=== PATIENT | female | born 1975 | race Hispanic/Latino ===

== ENCOUNTER 2022-07-01 20:56 | Emergency (ER) | payer OTHER ==
[~2022-07-01 20:56] MED LIST: Iopamidol-370 76% 500 ML 1 ML ONE
[2022-07-01 21:47] LABS: #Basophils 0.1 thou/uL (0.0-0.2); #Eosinphils 0.2 thou/uL (0.0-0.7); #Lymphocytes 3.7 thou/uL (1.20-3.40); #Monocytes 0.7 thou/uL (0.11-0.59); #Neutrophils 7.2 thou/uL (1.40-6.50); %Basophils 0.5 % (0.0-1.0); %Eosinophils 2.1 % (0.0-10.0); %Lymphocytes 30.9 % (21.0-51.0); %Neutrophils 60.4 % (42.0-75.0); Hemoglobin 13.1 g/dL (12.0-16.0); Mean Corpuscular HGB CONC 32.3 g/dL (32.0-36.0); Mean Corpuscular Hemoglobin 28.7 pg (27.0-31.0); Mean Corpuscular Volume 88.9 fl (78.0-98.0); Mean Platelet Volume 7.4 fL (7.4-10.4); Platelet Count 305 thou/uL (130-400); RBC Distribution Width 13.4 % (11.5-14.5); Red Blood Cell (RBC) Count 4.57 mill/uL (4.20-5.40); White Blood Cell (WBC) Count 11.8 thou/uL (4.8-10.8)
[2022-07-01 22:05] LABS: ALT (SGPT) 21 U/L (8-55); AST (SGOT) 14 U/L (5-34); Albumin 3.5 g/dL (3.5-5.0); Alkaline Phosphatase 117 U/L (40-110); Anion Gap 10 mmol/L (10-20); BUN (Urea Nitrogen) 15 mg/dL (7.0-18.7); Bilirubin, Total 0.3 mg/dL (0.2-1.2); Calc. Creatinine Clearance 0 mL/min (70-130); Calcium 8.8 mg/dL (7.8-10.44); Carbon Dioxide 27 mmol/L (22-29); Chloride 102 mmol/L (98-107); Estimated GFR 83; Globulin 3.3 g/dL (2.4-3.5); Glucose 239 mg/dL (70-105); Potassium 4.2 mmol/L (3.5-5.1); Protein, Total 6.8 g/dL (6.0-8.3); Sodium 135 mmol/L (136-145)
== END 2022-07-02 01:28 | disposition home or self-care (01) ==
LOC: ERS 20:56
DX: R07.89 Other chest pain (principal); E11.9 Type 2 diabetes mellitus without complications; I10 Essential (primary) hypertension
CPT/HCPCS: 36415; 71045; 71275; 80053; 83880; 84484; 85025; 85379; 93005

== ENCOUNTER 2023-04-19 19:57 | Emergency (ER) | payer OTHER, SELFPAY ==
[2023-04-19 21:29] LABS: #Eosinphils 0.2 thou/uL (0.0-0.7); #Monocytes 0.7 thou/uL (0.11-0.59); #Neutrophils 5.1 thou/uL (1.40-6.50); %Basophils 0.4 % (0.0-1.0); %Eosinophils 2.3 % (0.0-10.0); %Monocytes 7.4 % (0.0-10.0); %Neutrophils 56.5 % (42.0-75.0); Hematocrit 40.1 % (36.0-47.0); Hemoglobin 13.1 g/dL (12.0-16.0); Mean Corpuscular HGB CONC 32.7 g/dL (32.0-36.0); Mean Corpuscular Hemoglobin 28.6 pg (27.0-31.0); Mean Corpuscular Volume 87.6 fl (78.0-98.0); Mean Platelet Volume 9.4 fL (7.4-10.4); Platelet Count 401 10x3/uL (130-400); RBC Distribution Width 12.9 % (11.5-14.5); Red Blood Cell (RBC) Count 4.58 mill/uL (4.20-5.40); White Blood Cell (WBC) Count 9.1 10x3/uL (4.8-10.8)
[2023-04-19] MEDS ORDERED: fentaNYL 50 mcg/mL 1 mL Vial ONE (21:30)
[2023-04-19 21:55] LABS: ALT (SGPT) 19 U/L (8-55); AST (SGOT) 20 U/L (5-34); Albumin 3.4 g/dL (3.5-5.0); Alkaline Phosphatase 121 U/L (40-110); Anion Gap 13 mmol/L (10-20); BUN (Urea Nitrogen) 8 mg/dL (7.0-18.7); Bilirubin, Total 0.4 mg/dL (0.2-1.2); Calc. Creatinine Clearance 0 mL/min (70-130); Calcium 8.9 mg/dL (7.8-10.44); Carbon Dioxide 24 mmol/L (22-29); Chloride 103 mmol/L (98-107); Estimated GFR 109; Globulin 3.7 g/dL (2.4-3.5); Glucose 272 mg/dL (70-105); Lipase 28 U/L (8-78); Magnesium 1.7 mg/dL (1.6-2.6); Protein, Total 7.1 g/dL (6.0-8.3); Sodium 136 mmol/L (136-145)
[2023-04-19 21:58] LABS: Troponin I Less than 0.010 ng/mL (< 0.028)
[2023-04-19 22:11] LABS: BHCG - Serum Negative (NEGATIVE); Pregs Control Background? CLEAR/WHITE (CLR/WHITE); Pregs Control Bar Appear? YES (CONTROL BAR)
[2023-04-19] MEDS ORDERED: Cephalexin 250 MG CAP ONE (23:14)
== END 2023-04-19 23:11 | disposition home or self-care (01) ==
LOC: ERS 19:57
DX: L03.115 Cellulitis of right lower limb (principal); E11.9 Type 2 diabetes mellitus without complications; I10 Essential (primary) hypertension
CPT/HCPCS: 71045; 80053; 83690; 83735; 84484; 84703; 85025; 93005; 96374; J3010

== ENCOUNTER 2023-04-22 20:45 | Inpatient (IN) | payer SELFPAY ==
[2023-04-22] MEDS ORDERED: Ketorolac Tromethamine 30 MG/ML VIAL ONE (22:21)
[2023-04-22 22:25] LABS: #Basophils 0.1 thou/uL (0.0-0.2); #Eosinphils 0.2 thou/uL (0.0-0.7); #Monocytes 0.7 thou/uL (0.11-0.59); #Neutrophils 6.6 thou/uL (1.40-6.50); %Basophils 0.5 % (0.0-1.0); %Eosinophils 1.8 % (0.0-10.0); %Lymphocytes 25.7 % (21.0-51.0); %Monocytes 7.1 % (0.0-10.0); %Neutrophils 64.4 % (42.0-75.0); Hematocrit 40.9 % (36.0-47.0); Hemoglobin 13.4 g/dL (12.0-16.0); Mean Corpuscular HGB CONC 32.8 g/dL (32.0-36.0); Mean Corpuscular Hemoglobin 28.6 pg (27.0-31.0); Mean Corpuscular Volume 87.4 fl (78.0-98.0); Mean Platelet Volume 9.5 fL (7.4-10.4); Platelet Count 409 10x3/uL (130-400); RBC Distribution Width 12.7 % (11.5-14.5); Red Blood Cell (RBC) Count 4.68 mill/uL (4.20-5.40); White Blood Cell (WBC) Count 10.3 10x3/uL (4.8-10.8)
[2023-04-22 22:50] LABS: ALT (SGPT) 20 U/L (8-55); AST (SGOT) 13 U/L (5-34); Albumin 3.8 g/dL (3.5-5.0); Alkaline Phosphatase 135 U/L (40-110); Anion Gap 14 mmol/L (10-20); BUN (Urea Nitrogen) 11 mg/dL (7.0-18.7); Bilirubin, Total 0.4 mg/dL (0.2-1.2); Calc. Creatinine Clearance 0 mL/min (70-130); Calcium 9.4 mg/dL (7.8-10.44); Carbon Dioxide 26 mmol/L (22-29); Chloride 102 mmol/L (98-107); Estimated GFR 100; Globulin 3.9 g/dL (2.4-3.5); Glucose 258 mg/dL (70-105); Potassium 3.6 mmol/L (3.5-5.1); Protein, Total 7.7 g/dL (6.0-8.3); Sodium 138 mmol/L (136-145)
[2023-04-23] MEDS ORDERED: cefTRIAXone (ROCEPHIN) 2 GM VIAL ONE (00:03)
[2023-04-23 00:12] LABS: SARS-CoV-2 NAA Rapid Test Not Detected (NotDetected)
[2023-04-23] MEDS ORDERED: Vancomycin 1 GM/200 ML (FROZEN) BAG ONE (02:03)
[2023-04-23] MEDS ORDERED: Calcium Carbonate 500 MG ChewTAB PO PRN (02:09)
[2023-04-23] MEDS ORDERED: Senokot S 8.6-50 MG TAB PO PRN (02:09)
[2023-04-23] MEDS ORDERED: Ondansetron ODT 4 MG TAB PO PRN (02:09)
[2023-04-23] MEDS ORDERED: Acetaminophen 325 MG TAB PO PRN (02:09)
[2023-04-23] MEDS ORDERED: Dextrose 50% Abboject 50 ML SYRINGE SLOW IVP PRN (02:18)
[2023-04-23] MEDS ORDERED: HumaLOG 300 UNITS/3 ML VIAL SC PRN (02:18)
[2023-04-23] MEDS ORDERED: Dextrose 5% in Water 1,000 ML IV PRN (02:18)
[2023-04-23] MEDS ORDERED: Glucagon 1 MG/ML KIT IM PRN (02:18)
[2023-04-23] MEDS ORDERED: Morphine 4 MG/ML VIAL ONE (02:33)
[2023-04-23 03:06] LABS: Bilirubin Negative (Negative); Blood, Urine Negative (Negative); CAUTI Indications for Culture Fever or rigors; Clarity Turbid (Clear); Glucose, Urine (Dipstick) 300 mg/dL (Negative); Ketone, Urine Trace mg/dL (Negative); Leukocyte 75 Leu/uL (Negative); Mucous/LPF Rare LPF (<2+); Nitrite Negative (Negative); Protein, Urine (Dipstick) 100 mg/dL (Neg-Trace); Specific Gravity, Urine 1.034 (1.002-1.036); Urobilinogen Normal mg/dL (Less than 2); Yeast-Budding Rare HPF (None Seen); pH, Urine 5.5 (5.0-9.0)
[2023-04-23 03:23] LABS: Bacteria/HPF 1+ HPF (None Seen)
[2023-04-23 03:24] LABS: Urine Culture Reflex No No
[2023-04-23 05:47] VITALS: BMI 39.9
[2023-04-23 06:32] LABS: #Eosinphils 0.2 thou/uL (0.0-0.7); #Monocytes 0.7 thou/uL (0.11-0.59); #Neutrophils 4.4 thou/uL (1.40-6.50); %Basophils 0.5 % (0.0-1.0); %Eosinophils 2.2 % (0.0-10.0); %Monocytes 7.7 % (0.0-10.0); %Neutrophils 52.1 % (42.0-75.0); Hematocrit 34.3 % (36.0-47.0); Mean Corpuscular HGB CONC 32.1 g/dL (32.0-36.0); Mean Corpuscular Hemoglobin 28.7 pg (27.0-31.0); Mean Corpuscular Volume 89.6 fl (78.0-98.0); Mean Platelet Volume 9.3 fL (7.4-10.4); RBC Distribution Width 12.8 % (11.5-14.5); Red Blood Cell (RBC) Count 3.83 mill/uL (4.20-5.40); White Blood Cell (WBC) Count 8.5 10x3/uL (4.8-10.8)
[2023-04-23 06:41] LABS: Hemoglobin A1c 10.4 % (4.0-6.0)
[2023-04-23 06:46] LABS: Platelet Count 298 10x3/uL (130-400)
[2023-04-23 06:54] LABS: Anion Gap 12 mmol/L (10-20); BUN (Urea Nitrogen) 9 mg/dL (7.0-18.7); Calc. Creatinine Clearance 166 mL/min (70-130); Calcium 8.1 mg/dL (7.8-10.44); Carbon Dioxide 24 mmol/L (22-29); Chloride 105 mmol/L (98-107); Estimated GFR 110; Glucose 245 mg/dL (70-105); Potassium 3.5 mmol/L (3.5-5.1); Sodium 137 mmol/L (136-145)
[2023-04-23] MEDS ORDERED: Pregabalin 50 MG CAP PO SCH ×2 (09:00→21:00)
[2023-04-23] MEDS: Vancomycin 1.5 GRAM/300 ML BAG 1.5 GM in Premix Bag 1 BAG IVPB SCH ×2 (09:40→21:11)
[2023-04-23] MEDS: Lisinopril/Hydrochlorothiazide 20/25 mg Tablet PO SCH (09:41)
[2023-04-23] MEDS: Famotidine 20 MG TAB PO SCH ×2 (09:42→21:06)
[2023-04-23] MEDS: metFORMIN 500 MG TAB PO SCH ×2 (09:42→17:39)
[2023-04-23] MEDS: cefTRIAXone\\ROCEPHIN 2 GM in Sodium Chloride 0.9% 100 ML IVPB SCH (13:08)
[2023-04-23] MEDS: HYDROcodone/Acetaminophen 5/325 mg Tablet PO PRN ×2 (15:00→21:07)
[2023-04-23] MEDS: HumaLOG 300 UNITS/3 ML VIAL SC PRN (17:39)
[2023-04-24] MEDS: HYDROcodone/Acetaminophen 5/325 mg Tablet PO PRN ×2 (08:10→21:27)
[2023-04-24] MEDS: metFORMIN 500 MG TAB PO SCH ×2 (08:11→16:30)
[2023-04-24] MEDS: Lisinopril/Hydrochlorothiazide 20/25 mg Tablet PO SCH (08:11)
[2023-04-24] MEDS: Famotidine 20 MG TAB PO SCH ×2 (08:12→21:27)
[2023-04-24] MEDS: Hydrocortisone 1% Cream 30 GM TUBE TOP SCH (09:29)
[2023-04-24 09:54] LABS: Vancomycin, Trough 7.5 ug/mL
[2023-04-24] MEDS: Vancomycin 1.5 GRAM/300 ML BAG 1.5 GM in Premix Bag 1 BAG IVPB SCH ×3 (11:23→21:28)
[2023-04-24] MEDS: HumaLOG 300 UNITS/3 ML VIAL SC PRN ×2 (12:03→16:30)
[2023-04-24] MEDS: cefTRIAXone\\ROCEPHIN 2 GM in Sodium Chloride 0.9% 100 ML IVPB SCH (12:04)
[2023-04-24] MEDS ORDERED: Alogliptin 25 MG TAB PO SCH (15:00)
[2023-04-25] MEDS: HYDROcodone/Acetaminophen 5/325 mg Tablet PO PRN ×2 (04:14→08:24)
[2023-04-25] MEDS: Vancomycin 1.5 GRAM/300 ML BAG 1.5 GM in Premix Bag 1 BAG IVPB SCH (04:15)
[2023-04-25 06:53] LABS: #Eosinphils 0.2 thou/uL (0.0-0.7); #Monocytes 0.6 thou/uL (0.11-0.59); #Neutrophils 5.9 thou/uL (1.40-6.50); %Basophils 0.4 % (0.0-1.0); %Eosinophils 2.1 % (0.0-10.0); %Lymphocytes 24.9 % (21.0-51.0); %Monocytes 6.9 % (0.0-10.0); %Neutrophils 65.3 % (42.0-75.0); Hematocrit 35.5 % (36.0-47.0); Hemoglobin 11.6 g/dL (12.0-16.0); Mean Corpuscular HGB CONC 32.7 g/dL (32.0-36.0); Mean Corpuscular Hemoglobin 29.1 pg (27.0-31.0); Mean Corpuscular Volume 89.2 fl (78.0-98.0); Mean Platelet Volume 9.4 fL (7.4-10.4); Platelet Count 331 10x3/uL (130-400); RBC Distribution Width 12.7 % (11.5-14.5); Red Blood Cell (RBC) Count 3.98 mill/uL (4.20-5.40)
[2023-04-25 07:14] VITALS: TEMP 98
[2023-04-25 07:19] LABS: Anion Gap 12 mmol/L (10-20); BUN (Urea Nitrogen) 10 mg/dL (7.0-18.7); Calc. Creatinine Clearance 183 mL/min (70-130); Calcium 8.7 mg/dL (7.8-10.44); Carbon Dioxide 24 mmol/L (22-29); Chloride 102 mmol/L (98-107); Cholesterol 196 mg/dl (< 200 Desired); Estimated GFR 113; Glucose 194 mg/dL (70-105); HDL Cholesterol 28 mg/dL (>60 Neg Risk); LDL Cholesterol, Calculated 136 mg/dL; Potassium 3.4 mmol/L (3.5-5.1); Sodium 135 mmol/L (136-145); Triglycerides 158 mg/dL (Less than 150)
[2023-04-25] MEDS: Famotidine 20 MG TAB PO SCH (08:19)
[2023-04-25] MEDS: metFORMIN 500 MG TAB PO SCH (08:19)
[2023-04-25] MEDS: Lisinopril/Hydrochlorothiazide 20/25 mg Tablet PO SCH (08:20)
[2023-04-25] MEDS: Hydrocortisone 1% Cream 30 GM TUBE TOP SCH (08:20)
[2023-04-25] MEDS ORDERED: Alogliptin 25 MG TAB PO SCH (09:00)
[2023-04-25] MEDS: cefTRIAXone\\ROCEPHIN 2 GM in Sodium Chloride 0.9% 100 ML IVPB SCH (11:08)
[2023-04-25 11:24] VITALS: BP 126/83
[2023-04-25 11:56] LABS: Vancomycin, Trough 21.8 ug/mL
== END 2023-04-25 12:49 | disposition home or self-care (01) | DRG 603 ==
LOC: ERS 20:45 → 2SW 04-23 02:11 → OBSVTOIN 04-23 09:31 → T4-A 04-23 17:02
PROVIDERS: ADMIT Student in an Organized Health Care Education/Training Program; ATTEND Internal Medicine Critical Care Medicine
DX: L03.115 Cellulitis of right lower limb (principal); I50.32 Chronic diastolic (congestive) heart failure; L40.9 Psoriasis, unspecified; E66.9 Obesity, unspecified; Z20.822 Contact with and (suspected) exposure to COVID-19; I11.0 Hypertensive heart disease with heart failure; E11.69 Type 2 diabetes mellitus with other specified complication; E87.6 Hypokalemia; Z98.51 Tubal ligation status; Z90.49 Acquired absence of other specified parts of digestive tract; Z79.899 Other long term (current) drug therapy; Z98.890 Other specified postprocedural states; Z68.39 Body mass index [BMI] 39.0-39.9, adult
CPT/HCPCS: 36415; 36416; 71045; 80048; 80053; 80061; 80202; 81001; 83036; 83605; 84443; 85025; 85652; 86140; 87040; 96361; 96365; 96366; 96367; 96375; J0696; J1815; J1885; J2270; J3370; J3370-JW; J3490; U0002

== ENCOUNTER 2023-07-06 19:13 | Emergency (ER) | payer OTHER ==
[2023-07-06 20:17] LABS: #Basophils 0.1 thou/uL (0.0-0.2); #Eosinphils 0.3 thou/uL (0.0-0.7); #Monocytes 0.7 thou/uL (0.11-0.59); #Neutrophils 5.1 thou/uL (1.40-6.50); %Basophils 0.8 % (0.0-1.0); %Eosinophils 3.3 % (0.0-10.0); %Lymphocytes 33.1 % (21.0-51.0); %Monocytes 7.1 % (0.0-10.0); %Neutrophils 55.3 % (42.0-75.0); Hematocrit 41.6 % (36.0-47.0); Hemoglobin 12.8 g/dL (12.0-16.0); Mean Corpuscular HGB CONC 30.8 g/dL (32.0-36.0); Mean Corpuscular Hemoglobin 27.2 pg (27.0-31.0); Mean Corpuscular Volume 88.5 fl (78.0-98.0); Mean Platelet Volume 9.2 fL (7.4-10.4); Platelet Count 407 10x3/uL (130-400); RBC Distribution Width 13.9 % (11.5-14.5); White Blood Cell (WBC) Count 9.2 10x3/uL (4.8-10.8)
[2023-07-06 20:26] LABS: BHCG - Serum Negative (NEGATIVE); Pregs Control Background? CLEAR/WHITE (CLR/WHITE); Pregs Control Bar Appear? YES (CONTROL BAR)
[2023-07-06 20:40] LABS: ALT (SGPT) 10 U/L (8-55); AST (SGOT) 9 U/L (5-34); Alkaline Phosphatase 114 U/L (40-110); Anion Gap 13 mmol/L (10-20); BUN (Urea Nitrogen) 20 mg/dL (7.0-18.7); Bilirubin, Total 0.2 mg/dL (0.2-1.2); Calc. Creatinine Clearance 0 mL/min (70-130); Calcium 9.4 mg/dL (7.8-10.44); Carbon Dioxide 28 mmol/L (22-29); Chloride 102 mmol/L (98-107); Estimated GFR 96; Globulin 3.7 g/dL (2.4-3.5); Glucose 146 mg/dL (70-105); Potassium 3.7 mmol/L (3.5-5.1); Protein, Total 7.7 g/dL (6.0-8.3); Prothrombin Time 13.5 sec (12.0-14.7); Sodium 139 mmol/L (136-145)
[2023-07-06] MEDS ORDERED: Cyclobenzaprine 10 MG TAB ONE (22:16)
[2023-07-06] MEDS ORDERED: Ketorolac Tromethamine 30 MG/ML VIAL ONE (22:17)
== END 2023-07-06 22:30 | disposition home or self-care (01) ==
LOC: ERS 19:13
DX: M79.604 Pain in right leg (principal); E11.9 Type 2 diabetes mellitus without complications; I10 Essential (primary) hypertension
CPT/HCPCS: 36415; 71275; 84703; 85610; 85730; 96374; J1885

== ENCOUNTER 2023-08-05 20:27 | Inpatient (IN) | payer OTHER ==
[~2023-08-05 20:27] MED LIST changes: -Iopamidol-370 76% 500 ML 1 ML ONE; +Iopamidol-370 76% 500 ML MDV (1 ML CHARGE) ONE
[2023-08-05] MEDS ORDERED: Ondansetron PF 4 MG/2 ML Vial ONE (20:38)
[2023-08-05] MEDS ORDERED: Morphine 4 MG/ML VIAL ONE ×2 (20:38→22:17)
[2023-08-05 21:02] LABS: #Basophils 0.1 thou/uL (0.0-0.2); #Eosinphils 0.1 thou/uL (0.0-0.7); #Monocytes 0.9 thou/uL (0.11-0.59); %Basophils 0.4 % (0.0-1.0); %Eosinophils 0.6 % (0.0-10.0); %Lymphocytes 14.2 % (21.0-51.0); %Monocytes 6.5 % (0.0-10.0); %Neutrophils 77.9 % (42.0-75.0); Hematocrit 41.3 % (36.0-47.0); Hemoglobin 12.9 g/dL (12.0-16.0); Mean Corpuscular HGB CONC 31.2 g/dL (32.0-36.0); Mean Corpuscular Hemoglobin 25.9 pg (27.0-31.0); Mean Corpuscular Volume 82.8 fl (78.0-98.0); Mean Platelet Volume 9.3 fL (7.4-10.4); Platelet Count 499 10x3/uL (130-400); Red Blood Cell (RBC) Count 4.99 mill/uL (4.20-5.40); White Blood Cell (WBC) Count 14.1 10x3/uL (4.8-10.8)
[2023-08-05 21:25] LABS: ALT (SGPT) 9 U/L (8-55); AST (SGOT) 9 U/L (5-34); Albumin 3.7 g/dL (3.5-5.0); Alkaline Phosphatase 121 U/L (40-110); Anion Gap 14 mmol/L (10-20); BUN (Urea Nitrogen) 11 mg/dL (7.0-18.7); Bilirubin, Total 0.9 mg/dL (0.2-1.2); Calc. Creatinine Clearance 0 mL/min (70-130); Calcium 9.1 mg/dL (7.8-10.44); Carbon Dioxide 27 mmol/L (22-29); Chloride 102 mmol/L (98-107); Estimated GFR 88; Globulin 3.9 g/dL (2.4-3.5); Glucose 175 mg/dL (70-105); Potassium 4.2 mmol/L (3.5-5.1); Protein, Total 7.6 g/dL (6.0-8.3); Sodium 139 mmol/L (136-145)
[2023-08-05 21:28] LABS: Troponin I Less than 0.010 ng/mL (< 0.028)
[2023-08-05] MEDS ORDERED: Sodium Chloride 0.9% 100 ML ONE (21:34)
[2023-08-05] MEDS ORDERED: Piperacillin/Tazobactam 4.5 GM VIAL ONE (21:34)
[2023-08-05] MEDS ORDERED: Vancomycin (BATCH) 1.75 GM in Premix 1 BAG IVPB SCH (21:45)
[2023-08-05 21:51] LABS: Bacteria/HPF None Seen HPF (None Seen); Bilirubin Negative (Negative); Blood, Urine Negative (Negative); CAUTI Indications for Culture Dysuria,urgency,freq; Clarity Clear (Clear); Glucose, Urine (Dipstick) Normal (Negative); Ketone, Urine Negative (Negative); Leukocyte Negative Leu/uL (Negative); Nitrite Negative (Negative); Protein, Urine (Dipstick) 200 mg/dL (Neg-Trace); RBC/HPF 0-3 HPF (0-3); Specific Gravity, Urine 1.019 (1.002-1.036); Squamous Epithelial 0-3 HPF (0-3); Urobilinogen Normal mg/dL (Less than 2); WBC/HPF 0-3 HPF (0-3)
[2023-08-05 22:02] LABS: Urine Culture Reflex No No
[2023-08-05 22:05] LABS: SARS-CoV-2 NAA Rapid Test Not Detected (NotDetected)
[2023-08-05] MEDS ORDERED: Metoclopramide HCl 10 MG/2 ML VIAL ONE (22:17)
[2023-08-05 23:44] LABS: BHCG - Serum Negative (NEGATIVE); Pregs Control Background? CLEAR/WHITE (CLR/WHITE); Pregs Control Bar Appear? YES (CONTROL BAR)
[2023-08-05 23:59] LABS: Acetaminophen Less than 10 mcg/mL (10.0-30.0); Alcohol Less than 10.0 mg/dL (Less than 10); Magnesium 1.9 mg/dL (1.6-2.6); Salicylate Less than 8.0 mg/dL (15.0-30.0)
[2023-08-06 00:07] LABS: Amphetamine Not Detected (NotDetected); Barbiturates Screen Not Detected (NotDetected); Benzodiazepine Screen Detected (NotDetected); Cocaine Metabolite Screen Not Detected (NotDetected); Methadone Not Detected (NotDetected); Methamphetamine Not Detected (NotDetected); Opiate Screen Detected (NotDetected); Oxycodone Screen Not Detected (NotDetected); Phencyclidine (PCP) Not Detected (NotDetected); THC/Cannabinoid Screen Not Detected (NotDetected); Tricyclic Screen Not Detected (NotDetected)
[2023-08-06] MEDS ORDERED: Orphenadrine Citrate 60 MG/2 ML VIAL ONE (00:21)
[2023-08-06] MEDS ORDERED: LORazepam 2 MG/ML SYR.(CARPUJECT) ONE (00:37)
[2023-08-06 01:56] LABS: Actual Bicarbonate (HCO3v) 23.7 mEq/L (22-28); Base Excess -1.9 mEq/L (-2.0 to +3.0); Calcium, Ionized (venous) 1.04 mmol/L (1.16-1.32); Chloride (VBG) 103 mmol/L (98-106); Hematocrit-VBG 39 % (36.0-47.0); Hemoglobin (Hb) 13.1 g/dL (11.7-16.0); Sodium 140 mmol/L (133-146); pH (venous) 7.353 (7.32-7.43)
[2023-08-06] MEDS ORDERED: cefTRIAXone (ROCEPHIN) 2 GM VIAL ONE (02:53)
[2023-08-06] MEDS ORDERED: Sodium Chloride 0.9% 100 ML ONE (02:54)
[2023-08-06] MEDS ORDERED: CALCIUM GLUC 1 GM/NS 50 ML BAG ONE (02:54)
[2023-08-06 03:28] VITALS: BMI 28.8
[2023-08-06] MEDS ORDERED: Methocarbamol 500 MG TAB PO PRN (08:40)
[2023-08-06] MEDS ORDERED: Ondansetron PF 4 MG/2 ML Vial IVP PRN (08:40)
[2023-08-06] MEDS ORDERED: Acetaminophen 325 MG TAB PO PRN (08:40)
[2023-08-06] MEDS ORDERED: VANCOMYCIN IVPB PRN (08:44)
[2023-08-06] MEDS ORDERED: Docusate 100 MG CAP PO PRN (09:06)
[2023-08-06] MEDS ORDERED: Glucagon 1 MG/ML KIT IM PRN (09:06)
[2023-08-06] MEDS ORDERED: Polyethylene Glycol 3350 17 GM Packet PO PRN (09:06)
[2023-08-06] MEDS ORDERED: Dextrose 50% Abboject 50 ML SYRINGE SLOW IVP PRN (09:06)
[2023-08-06] MEDS ORDERED: HumaLOG 300 UNITS/3 ML VIAL SC PRN ×2 (09:06→22:09)
[2023-08-06] MEDS ORDERED: Dextrose 5% in Water 1,000 ML IV PRN (09:06)
[2023-08-06] MEDS ORDERED: Dexamethasone 10 MG/ML VIAL ONE (09:34)
[2023-08-06] MEDS ORDERED: Famotidine 20 MG TAB ONE (09:35)
[2023-08-06] MEDS: Famotidine 20 MG TAB PO SCH ×2 (09:38→22:35)
[2023-08-06] MEDS: Dexamethasone 10 MG/ML VIAL SLOW IVP SCH ×3 (09:39→22:35)
[2023-08-06] MEDS ORDERED: Magnevist 469MG/ML 20 ML VIAL ONE (10:08)
[2023-08-06] MEDS ORDERED: Losartan 25 MG TAB PO SCH (10:30)
[2023-08-06] MEDS ORDERED: HYDROcodone/Acetaminophen 5/325 mg Tablet ONE (10:51)
[2023-08-06] MEDS: HYDROcodone/Acetaminophen 5/325 mg Tablet PO PRN ×2 (10:53→22:49)
[2023-08-06] MEDS ORDERED: Vancomycin 1 GM/200 ML (FROZEN) BAG ONE (13:19)
[2023-08-06] MEDS: Vancomycin 1 GM in Premix 1 BAG IVPB SCH ×2 (13:27→17:48)
[2023-08-06] MEDS ORDERED: Losartan 25 MG TAB ONE (13:30)
[2023-08-06 13:47] LABS: CSF Source CSF
[2023-08-06 13:48] LABS: CSF Source CSF; Clarity Clear (Clear); Tube # 2; Tube # 4
[2023-08-06 13:55] LABS: CSF, Glucose 122 mg/dl (40-70); CSF, Protein 22 mg/dL (15-40)
[2023-08-06 14:10] LABS: Color Of CSF Supernatant COLORLESS (Colorless); Tube # 1; Unspun CSF Color COLORLESS (Colorless)
[2023-08-06] MEDS ORDERED: FLU VACC QS2023-24(6MOS UP)/PF 60 MCG/0.5 ML SYRINGE IM ONE (16:00)
[2023-08-06] MEDS: cefTRIAXone\\ROCEPHIN 2 GM in Sodium Chloride 0.9% 100 ML IVPB SCH (16:37)
[2023-08-06] MEDS: Atorvastatin Calcium 10 MG TAB PO SCH (22:35)
[2023-08-07] MEDS: Vancomycin 1 GM in Premix 1 BAG IVPB SCH ×2 (03:03→09:31)
[2023-08-07] MEDS ORDERED: Metoclopramide HCl 10 MG/2 ML VIAL IVP SCH (04:30)
[2023-08-07] MEDS: Dexamethasone 10 MG/ML VIAL SLOW IVP SCH ×2 (04:40→09:30)
[2023-08-07] MEDS: cefTRIAXone\\ROCEPHIN 2 GM in Sodium Chloride 0.9% 100 ML IVPB SCH (04:47)
[2023-08-07 04:56] LABS: #Monocytes 0.3 thou/uL (0.11-0.59); #Neutrophils 11.3 thou/uL (1.40-6.50); %Basophils 0.2 % (0.0-1.0); %Lymphocytes 8.2 % (21.0-51.0); %Monocytes 2.3 % (0.0-10.0); %Neutrophils 88.9 % (42.0-75.0); Hematocrit 37.7 % (36.0-47.0); Hemoglobin 11.8 g/dL (12.0-16.0); Mean Corpuscular HGB CONC 31.3 g/dL (32.0-36.0); Mean Corpuscular Hemoglobin 25.8 pg (27.0-31.0); Mean Corpuscular Volume 82.5 fl (78.0-98.0); Mean Platelet Volume 9.9 fL (7.4-10.4); Platelet Count 502 10x3/uL (130-400); RBC Distribution Width 14.5 % (11.5-14.5); Red Blood Cell (RBC) Count 4.57 mill/uL (4.20-5.40); White Blood Cell (WBC) Count 12.7 10x3/uL (4.8-10.8)
[2023-08-07 05:24] LABS: Anion Gap 13 mmol/L (10-20); BUN (Urea Nitrogen) 15 mg/dL (7.0-18.7); Calc. Creatinine Clearance 133 mL/min (70-130); Calcium 9.7 mg/dL (7.8-10.44); Carbon Dioxide 26 mmol/L (22-29); Chloride 101 mmol/L (98-107); Estimated GFR 98; Glucose 332 mg/dL (70-105); Potassium 4.2 mmol/L (3.5-5.1); Sodium 136 mmol/L (136-145)
[2023-08-07] MEDS ORDERED: Losartan 25 MG TAB PO SCH (09:00)
[2023-08-07 09:24] LABS: Vancomycin, Trough 12.2 ug/mL
[2023-08-07] MEDS: Famotidine 20 MG TAB PO SCH ×2 (09:30→21:31)
[2023-08-07] MEDS: Losartan 25 MG TAB PO SCH (09:30)
[2023-08-07] MEDS: Oseltamivir 75 MG CAP PO SCH ×2 (09:31→21:30)
[2023-08-07] MEDS ORDERED: Vancomycin HCl 250 MG in Sodium Chloride 0.9% 100 ML IVPB SCH (09:45)
[2023-08-07] MEDS: HumaLOG 300 UNITS/3 ML VIAL SC PRN ×2 (16:49→21:49)
[2023-08-07] MEDS ORDERED: Vancomycin (BATCH) 1.25 GM in Premix 1 BAG IVPB SCH (18:00)
[2023-08-07] MEDS ORDERED: Melatonin 3 MG TAB PO PRN (20:07)
[2023-08-07] MEDS: Atorvastatin Calcium 10 MG TAB PO SCH (21:30)
[2023-08-07] MEDS: HYDROcodone/Acetaminophen 5/325 mg Tablet PO PRN (21:31)
[2023-08-08] MEDS: HumaLOG 300 UNITS/3 ML VIAL SC PRN (05:48)
[2023-08-08] MEDS: Famotidine 20 MG TAB PO SCH (08:41)
[2023-08-08] MEDS: Losartan 25 MG TAB PO SCH (08:41)
[2023-08-08] MEDS: Oseltamivir 75 MG CAP PO SCH (08:41)
[2023-08-08] MEDS: HYDROcodone/Acetaminophen 5/325 mg Tablet PO PRN (08:45)
[2023-08-08] MEDS ORDERED: Clobetasol 0.05% Cream 15 gm Tube TOP SCH (09:00)
[2023-08-08] MEDS ORDERED: Ibuprofen 800 MG TAB PO PRN (10:50)
[2023-08-08] MEDS ORDERED: HumaLOG 300 UNITS/3 ML VIAL SC PRN (10:51)
[2023-08-08 11:42] VITALS: BP 138/70; TEMP 98.4
== END 2023-08-08 15:45 | disposition home or self-care (01) | DRG 872 ==
LOC: ERS 20:27 → ERHOLD 08-06 02:59 → OBSVTOIN 08-06 08:46 → 2NO 08-06 14:22
PROVIDERS: ADMIT Student in an Organized Health Care Education/Training Program; ATTEND Student in an Organized Health Care Education/Training Program
PROC: 3E03329 Introduction of Other Anti-infective into Peripheral Vein, Percutaneous Approach (ICD-10-PCS; 2023-08-05)
PROC: 009U3ZX Drainage of Spinal Canal, Percutaneous Approach, Diagnostic (ICD-10-PCS; principal; 2023-08-06)
PROC: 4A043R1 Measurement of Venous Saturation, Peripheral, Percutaneous Approach (ICD-10-PCS; 2023-08-06)
DX: A41.89 Other specified sepsis (principal); I50.32 Chronic diastolic (congestive) heart failure; J10.1 Influenza due to other identified influenza virus with other respiratory manifestations; I11.0 Hypertensive heart disease with heart failure; E11.9 Type 2 diabetes mellitus without complications; Z98.51 Tubal ligation status; Z98.890 Other specified postprocedural states; Z11.52 Encounter for screening for COVID-19
CPT/HCPCS: 36415; 36416; 62270; 70450; 70553; 71275; 80048; 80053; 80202; 80306; 80307; 81001; 82805; 82945; 83605; 83735; 83880; 84157; 84439; 84443; 84480; 84484; 84703; 85025; 87040; 87070; 87077; 87081; 87086; 87205; 87633; 89051; 93005; 96361; 96365; 96366; 96367; 96372; 96375; 96376; A9579; G0378; J0613; J0696; J1100; J1650; J1815; J2060; J2270; J2360; J2405; J2543; J2765; J3370; J3370-JW; J3490; Q9967

== ENCOUNTER 2024-02-26 11:29 | Emergency (ER) | payer OTHER ==
[2024-02-26 12:11] LABS: Pregnancy Test - Urine (BHCG) Negative (Negative); Pregu Control Bar Appear? YES (CONTROL BAR); Specific Gravity 1.033 (1.002-1.036)
[2024-02-26 12:13] LABS: Bacteria/HPF None Seen HPF (None Seen); Bilirubin Negative (Negative); Blood, Urine Trace (Negative); CAUTI Indications for Culture Dysuria,urgency,freq; Clarity Clear (Clear); Glucose, Urine (Dipstick) Normal (Negative); Ketone, Urine Negative (Negative); Leukocyte Negative Leu/uL (Negative); Nitrite Negative (Negative); Protein, Urine (Dipstick) 300 mg/dL (Neg-Trace); RBC/HPF 0-3 HPF (0-3); Specific Gravity, Urine 1.033 (1.002-1.036); Squamous Epithelial None Seen HPF (0-3); Urobilinogen Normal mg/dL (Less than 2); WBC/HPF 0-3 HPF (0-3); pH, Urine 5.5 (5.0-9.0)
[2024-02-26 12:15] LABS: Urine Culture Reflex No No
[2024-02-26 12:20] LABS: Pregu Control Background? CLEAR/WHITE (CLR/WHITE)
[2024-02-26 12:21] LABS: #Basophils 0.05 10x3/uL (0.0-0.2); %Basophils 0.5 % (0.0-1.0); %Eosinophils 2.1 % (0.0-10.0); %Lymphocytes 23.4 % (21.0-51.0); %Monocytes 5.1 % (0.0-10.0); %Neutrophils 68.4 % (42.0-75.0); Hematocrit 42.2 % (36.0-47.0); Hemoglobin 13.9 g/dL (12.0-16.0); Mean Corpuscular HGB CONC 32.9 g/dL (32.0-36.0); Mean Corpuscular Hemoglobin 28.9 pg (27.0-31.0); Mean Corpuscular Volume 87.7 fL (78.0-98.0); Mean Platelet Volume 9.5 fL (7.4-10.4); Platelet Count 357 10x3/uL (130-400); RBC Distribution Width 13.7 % (11.5-14.5); Red Blood Cell (RBC) Count 4.81 mill/uL (4.20-5.40)
[2024-02-26 12:46] LABS: ALT (SGPT) 11 U/L (8-55); AST (SGOT) 11 U/L (5-34); Albumin 3.7 g/dL (3.5-5.0); Alkaline Phosphatase 105 U/L (40-110); Anion Gap 13 mmol/L (10-20); BUN (Urea Nitrogen) 13 mg/dL (7.0-18.7); Bilirubin, Total 0.7 mg/dL (0.2-1.2); Calc. Creatinine Clearance 0 mL/min (70-130); Calcium 9.3 mg/dL (7.8-10.44); Carbon Dioxide 25 mmol/L (22-29); Chloride 106 mmol/L (98-107); Estimated GFR 108; Globulin 4.3 g/dL (2.4-3.5); Glucose 143 mg/dL (70-105); Lipase 20 U/L (8-78); Potassium 4.1 mmol/L (3.5-5.1); Sodium 140 mmol/L (136-145)
[2024-02-26] MEDS ORDERED: HYDROcodone/Acetaminophen 5/325 mg Tablet ONE (14:01)
[2024-02-26] MEDS ORDERED: Ketorolac Tromethamine 30 MG (1 mL) VIAL ONE (14:12)
[2024-02-26] MEDS ORDERED: Ondansetron PF 4 MG/2 ML Vial ONE (14:13)
[2024-02-26] MEDS ORDERED: Morphine 4 MG/ML VIAL ONE (16:43)
== END 2024-02-26 18:02 | disposition home or self-care (01) ==
LOC: ERS 11:29
DX: N83.202 Unspecified ovarian cyst, left side (principal); R10.9 Unspecified abdominal pain; I10 Essential (primary) hypertension; E11.9 Type 2 diabetes mellitus without complications; Z79.84 Long term (current) use of oral hypoglycemic drugs; Z79.899 Other long term (current) drug therapy; Z55.6 Problems related to health literacy
CPT/HCPCS: 36415; 74176; 76856; 80053; 81001; 81025; 83690; 85025; 96361; 96374; 96375; J1885; J2270; J2405

== ENCOUNTER 2024-08-22 11:22 | Outpatient (CLI) | payer OTHER | END 2024-08-22 11:23 | disposition home or self-care (01) | LOC: SCSRAD 11:22 | PROVIDERS: ATTEND Family Medicine | DX: R05.9 Cough, unspecified (principal); J98.4 Other disorders of lung | CPT/HCPCS: 71046 ==

== ENCOUNTER 2025-04-29 21:57 | Emergency (ER) | payer OTHER, SELFPAY ==
[2025-04-29 23:03] LABS: #Basophils 0.04 10x3/uL (0.0-0.2); #Eosinophils 0.06 10x3/uL (0.0-0.7); #Monocytes 1.09 10x3/uL (0.11-0.59); #Neutrophils 3.82 10x3/uL (1.40-6.50); %Basophils 0.5 % (0.0-1.0); %Eosinophils 0.8 % (0.0-10.0); %Lymphocytes 33.3 % (21.0-51.0); %Monocytes 14.4 % (0.0-10.0); %Neutrophils 50.3 % (42.0-75.0); Hematocrit 44.7 % (36.0-47.0); Hemoglobin 14.1 g/dL (12.0-16.0); Mean Corpuscular Hemoglobin 26.9 pg (27.0-31.0); Mean Corpuscular Volume 85.3 fL (78.0-98.0); Platelet Count 327 10x3/uL (130-400); Red Blood Cell (RBC) Count 5.24 mill/uL (4.20-5.40); White Blood Cell (WBC) Count 7.59 10x3/uL (4.8-10.8)
[2025-04-29 23:22] LABS: ALT (SGPT) 11 U/L (Less than 34); AST (SGOT) 17 U/L (11-34); Albumin 4.0 g/dL (3.1-4.5); Alkaline Phosphatase 107 U/L (40-110); Anion Gap 15 mmol/L (10-20); BUN (Urea Nitrogen) 28 mg/dL (7.0-18.7); Bilirubin, Total 0.3 mg/dL (0.3-1.2); Calc. Creatinine Clearance 0 mL/min (70-130); Calcium 9.0 mg/dL (7.8-10.44); Carbon Dioxide 27 mmol/L (22-29); Chloride 103 mmol/L (98-107); Globulin 4.0 g/dL (2.4-3.5); Glucose 135 mg/dL (70-105); Potassium 3.7 mmol/L (3.5-5.1); Sodium 141 mmol/L (136-145)
[2025-04-30] MEDS ORDERED: Ketorolac Tromethamine 30 MG (1 mL) VIAL ONE (01:32)
[2025-04-30 01:41] LABS: BHCG - Serum Negative (NEGATIVE); Pregs Control Background? CLEAR/WHITE (CLR/WHITE); Pregs Control Bar Appear? YES (CONTROL BAR)
[2025-04-30] MEDS ORDERED: Iopamidol 370 76% 100 ML VIAL ONE (13:01)
== END 2025-04-30 02:44 | disposition home or self-care (01) ==
LOC: ERS 21:57
DX: B34.9 Viral infection, unspecified (principal); E11.9 Type 2 diabetes mellitus without complications; I10 Essential (primary) hypertension
CPT/HCPCS: 36415; 71045; 71275; 80053; 84484; 84703; 85025; 93005; 96374; J1885; Q9967